=== PATIENT | male | born 1960 | race Caucasian/White ===

== ENCOUNTER → 2018-08-27 | Outpatient (CLI) | payer SELFPAY ==
[~2018-08-27] MED LIST: CEFU500T10 PO; OXYC-865 PO; PRED-1 PO
--- NOTE | 2018-08-27 19:14 | RADIOLOGY IMAGING REPORT ---
FACILITY: PATIENT NAME: Paulo Andersen : 1960 MR: [id number] V: [id number] EXAM DATE: ORDERING PHYSICIAN: VAISHALI WARREN TECHNOLOGIST: Location: [facility] Patient: Paulo Andersen : 1960 Visit/Account:[id number] Date of Sevice: 08/27/2018 US VENOUS LOWER EXT RT HISTORY: Right calf pain and swelling ADDITIONAL HISTORY: None. COMPARISON: None. FINDINGS: Grayscale, duplex and color Doppler interrogation of the right lower extremity deep veins from common femoral vein to proximal calf was completed. Common femoral vein: Negative. Femoral vein: Negative. Deep femoral vein: Negative. Popliteal vein: Negative. Visualized deep calf veins: Negative. Popliteal fossa: Negative. Greater saphenous vein in the proximal thigh: Negative. Incidental note is made of a 3.0 cm lymph node present within the right groin. IMPRESSION: Negative for deep venous thrombosis within the right lower extremity Report Dictated By: Bakari Krishnan at 08/27/2018 7:09 PM Report E-Signed By: Bakari Krishnan at 08/27/2018 7:10 PM WSN:[id number]
== END ==
LOC: US 18:10
PROVIDERS: ATTEND Family Medicine
DX: M79.604 Pain in right leg (principal)

== ENCOUNTER → 2018-08-27 | Outpatient (REF) | payer SELFPAY ==
[2018-08-27 18:26] LABS: PLATELET COUNT, AUTOMATED 302 K/uL (150-450)
== END ==
PROVIDERS: ATTEND Family Medicine
DX: M79.609 Pain in unspecified limb (principal)
CPT/HCPCS: 82040; 82247; 82310; 82374; 82435; 82565; 82947; 84075; 84132; 84155; 84295; 84450; 84460; 84520; 84550; 85025; 85379; 86140